=== PATIENT | female | born 1960 | race Caucasian/White ===

== ENCOUNTER → 2021-05-14 | Emergency (ER) | payer MEDICAID ==
[~2021-05-14] VITALS: Ht 162.6 cm; Wt 91.5 kg
[~2021-05-14] MED LIST: ASPI-611 PO; FISH OIL 1000MG PO; GABA-532 PO; GEMF600T89 PO; GLIP10TA11 PO; HYDR12.5 PO; LISI40TA13 PO; LOVA40TA2 PO; MELA3TAB39 PO; METF-900 PO; PROCHC RC
[2021-05-14 13:16] VITALS: BP 153/90
== END | disposition home or self-care (01) ==
LOC: ER 12:48
DX: K92.2 Gastrointestinal hemorrhage, unspecified (principal); K64.8 Other hemorrhoids; Z86.2 Personal history of diseases of the blood and blood-forming organs and certain disorders involving the immune mechanism; Z88.1 Allergy status to other antibiotic agents; Z79.82 Long term (current) use of aspirin; Z79.899 Other long term (current) drug therapy
CPT/HCPCS: 99283

== ENCOUNTER 2021-12-23 16:54 | Emergency (ER) | payer MEDICAID ==
[~2021-12-23] VITALS: Ht 162.6 cm; Wt 89.5 kg
--- NOTE | 2021-12-23 17:03 | NUR ---
Pt to [facility] w tech, temporarily placed in 17.
--- NOTE | 2021-12-23 17:20 | NUR ---
Pt back from CT/XR, moved to bed 6, placed on monitor with updated VSS
[2021-12-23 17:27] LABS: APTT 26 SECONDS (22-32)
[2021-12-23 17:31] LABS: ALANINE AMINOTRANSFERASE 97 U/L (12-78); ALBUMIN 3.4 G/DL (3.4-5.0); ALBUMIN/GLOBULIN RATIO 0.9 (1.1-1.5); ALKALINE PHOSPHATASE 78 IU/L (46-116); ANION GAP 12 (8-16); ASPARTATE AMINO TRANSFERASE 67 U/L (10-37); BILIRUBIN,TOTAL 0.4 MG/DL (0.1-1.0); BLOOD UREA NITROGEN 11 MG/DL (7-18); BUN/CREATININE RATIO 16.4 (6.6-38.0); CALCIUM 8.6 MG/DL (8.5-10.1); CHLORIDE 103 MMOL/L (99-107); CREATININE 0.67 MG/DL (0.40-0.90); GLUCOSE 210 MG/DL (70-104); POTASSIUM 4.1 MMOL/L (3.5-5.1); SODIUM 138 MMOL/L (135-145); TOTAL CARBON DIOXIDE 23.3 MMOL/L (24-32); TOTAL PROTEIN 7.1 G/DL (6.4-8.2); eGFR 89 ML/MIN
[2021-12-23] MEDS ORDERED: valacyclovir 500mg tablet PO STA (17:49)
[2021-12-23 17:50] LABS: BASOPHILS % (AUTO) 0.8 % (0-1); EOSINOPHILS # (AUTO) 0.2 X10'3 (0-0.9); EOSINOPHILS % (AUTO) 4.2 % (0-6); HEMATOCRIT 40.4 % (35.0-45.0); HEMOGLOBIN 14.1 g/dl (12.0-16.0); LYMPHOCYTES # (AUTO) 1.1 X10'3 (1.1-4.8); LYMPHOCYTES % (AUTO) 22.2 % (21-51); MEAN CORPUSCULAR HEMOGLOBIN 33.5 PG (27.0-31.0); MEAN CORPUSCULAR HGB CONC 34.9 g/dL (33.0-36.5); MEAN CORPUSCULAR VOLUME 96.1 FL (78-98); MEAN PLATELET VOLUME 7.3 FL (7.4-10.4); MONOCYTES # (AUTO) 0.4 X10'3 (0-0.9); MONOCYTES % (AUTO) 7.3 % (2-12); NEUTROPHILS # (AUTO) 3.2 X10'3 (1.8-7.7); NEUTROPHILS % (AUTO) 65.5 % (42-75); PLATELET COUNT 241 X10'3 (140-440); RED BLOOD COUNT 4.21 X10'6 (4.20-5.60); RED CELL DISTRIBUTION WIDTH 13.5 % (11.5-14.5); WHITE BLOOD COUNT 4.9 X10'3 (4.5-11.0)
[2021-12-23] MEDS ORDERED: predniSONE 20 mg tablet PO ONE (17:50)
[2021-12-23] MEDS ORDERED: VALA100031 PO (18:30)
[2021-12-23] MEDS ORDERED: PRED20TA PO (18:30)
[2021-12-23] MEDS ORDERED: CARB-268 RIGHTEYE (18:34)
[2021-12-23 19:00] VITALS: BP 172/92
== END 2021-12-23 19:02 | disposition home or self-care (01) ==
LOC: ER 16:54
DX: G51.0 Bell's palsy (principal); Z20.822 Contact with and (suspected) exposure to COVID-19; H92.01 Otalgia, right ear; R68.84 Jaw pain; I10 Essential (primary) hypertension; Z86.2 Personal history of diseases of the blood and blood-forming organs and certain disorders involving the immune mechanism; Z87.19 Personal history of other diseases of the digestive system; Z88.1 Allergy status to other antibiotic agents; Z79.82 Long term (current) use of aspirin; Z79.899 Other long term (current) drug therapy
CPT/HCPCS: 36415; 70450; 71045; 80053; 82948; 85025; 85610; 85730; 87635; 93005; 99285; C9803; J7512

== ENCOUNTER → 2023-12-10 | Outpatient (CLI) | payer MEDICAID ==
[~2023-12-10] MED LIST changes: +CARB-268 RIGHTEYE; +VALA100031 PO
== END | disposition home or self-care (01) ==
LOC: RAD 10:48
PROVIDERS: ATTEND Family Medicine
DX: R14.0 Abdominal distension (gaseous) (principal); R10.2 Pelvic and perineal pain
CPT/HCPCS: 76700; 76856

== ENCOUNTER 2023-12-30 13:02 | Outpatient (CLI) | payer MEDICAID | END 2023-12-30 23:59 | disposition home or self-care (01) | LOC: RAD 13:02 | PROVIDERS: ATTEND Family Medicine | DX: R10.2 Pelvic and perineal pain (principal) | CPT/HCPCS: 76830 ==

== ENCOUNTER 2024-10-04 13:25 | Outpatient (CLI) | payer MEDICARE, MEDICAID ==
[~2024-10-04 13:25] MED LIST changes: +ATOR20TA66 PO; +CLOP75TA34 PO; -GEMF600T89 PO; -GLIP10TA11 PO; -HYDR12.5 PO; -LOVA40TA2 PO; -MELA3TAB39 PO; -METF-900 PO; -PROCHC RC; +TRAM50TA2 PO; -VALA100031 PO
== END 2024-10-04 23:59 | disposition home or self-care (01) ==
LOC: MRI02 13:25
PROVIDERS: ATTEND Physician Assistant Surgical
DX: S83.411A Sprain of medial collateral ligament of right knee, initial encounter (principal); M17.11 Unilateral primary osteoarthritis, right knee; M25.461 Effusion, right knee; M71.21 Synovial cyst of popliteal space [Baker], right knee; M67.461 Ganglion, right knee; M25.561 Pain in right knee; X58.XXXA Exposure to other specified factors, initial encounter; Y93.89 Activity, other specified; Y92.89 Other specified places as the place of occurrence of the external cause; Y99.8 Other external cause status
CPT/HCPCS: 73721